=== PATIENT | female | born 1970 | race Two or more races ===

== ENCOUNTER 2018-02-06 09:38 | Day surgery (SDC) | payer OTHER ==
[~2018-02-06 09:38] MED LIST: CEFADROXIL500 MG; CLONAZEPAM0.5 M1; CYMBALTA20 MG; VISTARIL25 MG
== END 2018-02-06 20:40 | disposition home or self-care (01) ==
LOC: CIR.AMB 09:38
DX: D26.1 Other benign neoplasm of corpus uteri (principal); Z30.432 Encounter for removal of intrauterine contraceptive device

== ENCOUNTER 2022-06-13 17:40 | Emergency (ER) | payer OTHER ==
[~2022-06-13] VITALS: Ht 154.9 cm; Wt 78.5 kg
[2022-06-13] MEDS ORDERED: LYRICA50 MG PO (18:14)
[2022-06-13] MEDS ORDERED: RESTORIL7.5 MG PO (18:14)
[2022-06-14] MEDS ORDERED: KETO10TA2 PO (09:07)
[2022-06-14] MEDS ORDERED: MEDROLPACK PO (09:07)
[2022-06-14] MEDS ORDERED: NORFLEX100MG PO (09:07)
== END 2022-06-14 09:20 | disposition home or self-care (01) ==
LOC: ER 17:40
DX: M48.061 Spinal stenosis, lumbar region without neurogenic claudication (principal); M54.89 Other dorsalgia; M54.9 Dorsalgia, unspecified; Z20.822 Contact with and (suspected) exposure to COVID-19